=== PATIENT | female | born 1980 | race Caucasian/White ===

== ENCOUNTER 2022-11-29 10:33 | Outpatient (CLI) | payer OTHER, SELFPAY ==
[2022-11-29 11:07] VITALS: PULSE 75; RESP 18; O2SAT 99
[2022-11-29] MEDS: albuterol 2.5 mg/3 mL Neb INHALATION (11:07)
[2022-11-29 11:11] VITALS: PULSE 77
--- NOTE | 2022-11-29 11:30 | XRR_ITS ---
PROCEDURE INFORMATION: Exam: XR Chest Exam date and time: 11/29/2022 11:40 AM Age: 42 years old Clinical indication: Condition or disease; Lung condition and disease; Asthma TECHNIQUE: Imaging protocol: Radiologic exam of the chest. Views: 2 views. COMPARISON: No relevant prior studies available. FINDINGS: Lungs: Lung volumes are somewhat decreased which may be due to body habitus. No infiltrates or overt CHF. Pleural spaces: Unremarkable. No pleural effusion. No pneumothorax. Heart/Mediastinum: Heart appears mildly enlarged, accentuated by decreased lung volumes. Bones/joints: Unremarkable for age. No acute abnormalities. XR/XR chest 2V* [id number] IMPRESSION: Mild cardiomegaly, decreased lung volumes, otherwise negative chest.
== END 2022-11-29 10:34 | disposition home or self-care (01) ==
PROVIDERS: PCP Nurse Practitioner Family; Visit Provider Chiropractor
DX: J45.998 Other asthma (principal)
CPT/HCPCS: 71046; 94060; J7613